=== PATIENT | female | born 1960 | race Caucasian/White ===

== ENCOUNTER → 2017-03-21 | Outpatient (CLI) | payer OTHER ==
[2017-03-21 16:08] LABS: ASPARTATE AMINO TRANSFERASE 11 U/L (15-37); BLOOD UREA NITROGEN 10 mg/dL (7-18)
== END | disposition home or self-care (01) ==
LOC: STAR 14:57
PROVIDERS: ATTEND Obstetrics & Gynecology Female Pelvic Medicine and Reconstructive Surgery
DX: Z01.818 Encounter for other preprocedural examination (principal); R93.8 Abnormal findings on diagnostic imaging of other specified body structures; N84.0 Polyp of corpus uteri
CPT/HCPCS: 36415; 80053; 85025; 93005

== ENCOUNTER 2017-03-27 09:54 | Day surgery (SDC) | payer OTHER ==
[~2017-03-27] VITALS: Ht 168.9 cm; Wt 85.5 kg
[~2017-03-27 09:54] MED LIST: BUPIVACAINE/PF-EPI 0.25% 1:200K ONE; LISI-167 PO; LORA10TA3 PO; MULT-516 PO; OMEP-110 PO; PROP20TA PO
[2017-03-27 10:21] VITALS: BP 125/86
[2017-03-27] MEDS ORDERED: LACTATED RINGERS 1,000 ML IV SCH ×2 (10:21→12:18)
[2017-03-27] MEDS ORDERED: FENTANYL PF 100 MCG/2ML ONE ×3 (10:47→12:25)
[2017-03-27] MEDS ORDERED: MIDAZOLAM 1 MG/ML, 2ML ONE (10:47)
[2017-03-27 10:53] LABS: HCG UR OBC PASS
[2017-03-27] MEDS ORDERED: PROPOFOL 10 MG/ML, 20ML ONE (11:19)
[2017-03-27] MEDS ORDERED: DEXAMETHASONE 4 MG/ML, 1ML ONE (11:19)
[2017-03-27] MEDS ORDERED: CEFAZOLIN 1,000 MG ONE (11:19)
[2017-03-27] MEDS ORDERED: ONDANSETRON 2MG/ML, 2ML ONE (11:19)
[2017-03-27] MEDS ORDERED: KETOROLAC 30 MG/1 ML ONE (11:19)
[2017-03-27] MEDS ORDERED: ACETAMINOPHEN 325 MG TABLET PO PRN (12:00)
[2017-03-27] MEDS ORDERED: ONDANSETRON 2MG/ML, 2ML IVPush PRN ×2 (12:00→12:30)
[2017-03-27] MEDS ORDERED: MEPERIDINE/PF 25MG/0.5ML IVPush PRN (12:00)
[2017-03-27] MEDS ORDERED: MIDAZOLAM 1 MG/ML, 2ML IV PRN (12:00)
[2017-03-27] MEDS ORDERED: OXYcodone 5 MG/5 ML ORAL.SOL UDC PO PRN (12:00)
[2017-03-27] MEDS ORDERED: PROMETHAZINE 25 MG/ML, 1ML IV PRN (12:00)
[2017-03-27] MEDS ORDERED: HYDROmorphone 1 MG/ML, 1ML IV PRN (12:00)
[2017-03-27] MEDS ORDERED: hydrALAzine 20 MG/ML, 1ML IV PRN (12:00)
[2017-03-27] MEDS ORDERED: LABETALOL 5MG/ML, 20ML IV PRN (12:00)
[2017-03-27] MEDS ORDERED: METOCLOPRAMIDE 5 MG/ML, 2ML IV PRN (12:00)
[2017-03-27] MEDS ORDERED: ALBUTEROL/IPRATROPIUM 2.5MG/0.5MG, 3 ML NPPB PRN (12:00)
[2017-03-27] MEDS ORDERED: OXYcodone 5 MG/5 ML ORAL.SOL UDC ONE (12:24)
[2017-03-27] MEDS ORDERED: ACETAMINOPHEN 650 MG/20.3 ML UDC ONE (12:25)
[2017-03-27] MEDS ORDERED: ACETAMINOPHEN 325 MG TABLET ONE (12:25)
[2017-03-27] MEDS ORDERED: PROMETHAZINE 25 MG SUPP PR ONE (12:30)
[2017-03-27] MEDS ORDERED: IBUPROFEN 600 MG TABLET PO PRN (12:30)
[2017-03-27] MEDS: FENTANYL PF 100 MCG/2ML IV PRN ×3 (12:30→13:00)
== END 2017-03-27 15:00 | disposition home or self-care (01) ==
LOC: OUT 09:54
PROVIDERS: ATTEND Obstetrics & Gynecology Female Pelvic Medicine and Reconstructive Surgery
DX: N84.0 Polyp of corpus uteri (principal); Z90.49 Acquired absence of other specified parts of digestive tract; Z90.721 Acquired absence of ovaries, unilateral; I10 Essential (primary) hypertension; K21.9 Gastro-esophageal reflux disease without esophagitis; Z85.828 Personal history of other malignant neoplasm of skin; Z80.0 Family history of malignant neoplasm of digestive organs; Z80.3 Family history of malignant neoplasm of breast; Z80.1 Family history of malignant neoplasm of trachea, bronchus and lung; Z87.891 Personal history of nicotine dependence; Z72.89 Other problems related to lifestyle
CPT/HCPCS: 58563; 81025; 88305; J0690; J1100; J1885; J2250; J2405; J2704; J3010; J7120

== ENCOUNTER → 2017-05-30 | Outpatient (CLI) | payer OTHER ==
[~2017-05-30] MED LIST changes: -BUPIVACAINE/PF-EPI 0.25% 1:200K ONE
== END | disposition home or self-care (01) ==
LOC: CFH 10:47
PROVIDERS: ATTEND Obstetrics & Gynecology Female Pelvic Medicine and Reconstructive Surgery
DX: N83.201 Unspecified ovarian cyst, right side (principal); D25.9 Leiomyoma of uterus, unspecified
CPT/HCPCS: 76830

== ENCOUNTER → 2017-07-07 | Outpatient (CLI) | payer OTHER | END | disposition home or self-care (01) | LOC: CFH 10:39 | PROVIDERS: ATTEND Obstetrics & Gynecology Female Pelvic Medicine and Reconstructive Surgery | DX: N85.4 Malposition of uterus (principal); N85.8 Other specified noninflammatory disorders of uterus | CPT/HCPCS: 76830 ==